=== PATIENT | female | born 1985 | race Hispanic/Latino ===

== ENCOUNTER 2019-11-11 14:14 | Emergency (ER) | payer BC, OTHER ==
[2019-11-11 15:04] LABS: BASOPHILS % (AUTO) 0.3 % (0.0-5.0); HEMATOCRIT 38.9 % (36-48); MEAN CORPUSCULAR HEMOGLOBIN 32.5 pg (27.0-33.0); MEAN CORPUSCULAR HGB CONC 34.7 g/dL (32.0-36.0); MEAN CORPUSCULAR VOLUME 93.5 fL (79-99); MONOCYTES % (AUTO) 7.7 % (3.0-13.0); NEUTROPHILS % (AUTO) 88.1 % (40.0-77.0); PLATELET COUNT (AUTO) 282 K/uL (130-400); RED BLOOD CELL COUNT(AUTO) 4.16 MIL/uL (4.00-5.50); RED CELL DISTRIBUTION WIDTH 14.8 % (11.0-15.5); WHITE BLOOD COUNT (AUTO) 21.6 K/uL (4.8-10.8)
[2019-11-11] MEDS ORDERED: SODIUM CHLORIDE 0.9% 1000ML 1,000 ML IV ONE ×2 (15:05→17:20)
[2019-11-11 15:17] LABS: INR 1.13 (0.85-1.15); PARTIAL THROMBOPLASTIN TIME 34.8 SEC (26.3-35.5); PROTHROMBIN TIME 11.8 SEC (9.6-11.6)
[2019-11-11 15:25] LABS: APPEARANCE,URINE CLOUDY (CLEAR); BILIRUBIN,URINE NEGATIVE (NEGATIVE); COLOR,URINE ORANGE (YELLOW); GLUCOSE, URINE (UA) 100 mg/dL (NEGATIVE); KETONES,URINE 15 mg/dL (NEGATIVE); LEUKOCYTE ESTERASE ,URINE LARGE (NEGATIVE); NITRATE,URINE POSITIVE (NEGATIVE); OCCULT BLOOD,URINE SMALL (NEGATIVE); PROTEIN,URINE 100 mg/dL (NEGATIVE)
[2019-11-11 15:29] LABS: HCG,QUAL RESULT NEGATIVE (NEGATIVE)
[2019-11-11 15:41] LABS: ALBUMIN 2.4 g/dL (3.5-5.0); CREATININE 1.8 mg/dL (0.5-1.5); TOTAL PROTEIN, SERUM 7.3 g/dL (6.0-8.3)
[2019-11-11 15:42] LABS: POTASSIUM 2.2 mmol/L (3.5-5.1)
[2019-11-11 15:54] LABS: BACTERIA,URINE Moderate /HPF (None Seen); MUCUS,URINE Few LPF (None Seen); SQUAMOUS EPITHELIAL CELL,UR 0-2 /HPF (0-2)
[2019-11-11] MEDS ORDERED: CEFTRIAXONE SODIUM 1 GM ONE (17:18)
[2019-11-11] MEDS ORDERED: OSELTAMIVIR PHOSPHATE 75 MG CAP ONE (17:19)
== END 2019-11-11 18:21 | disposition home or self-care (01) ==
LOC: EDH 14:14
DX: N10 Acute pyelonephritis (principal); J10.1 Influenza due to other identified influenza virus with other respiratory manifestations; E87.6 Hypokalemia; E03.9 Hypothyroidism, unspecified; Z72.0 Tobacco use
CPT/HCPCS: 36415; 80053; 81001; 81025; 82550; 83605; 84484; 85025; 85610; 85730; 87040 ×2; 87077; 87088; 87186; 87804 ×2; 93005; 96374; 99284; J0696; J7030 ×2